=== PATIENT | female | born 1930 | race Caucasian/White ===

== ENCOUNTER 2017-11-20 13:40 | Inpatient (IN) | payer OTHER ==
[~2017-11-20] VITALS: Ht 162.6 cm; Wt 75.7 kg
[~2017-11-20 13:40] MED LIST: ACETAMINOPHEN500 M4 PO; AMLODIPINE BESYL5 M1 PO; BIOTIN1000 MC1 PO; CALCIUM 600 +1 EAC9 PO; GLUCOPHAGE XR500 M1 PO; GLUCOSAMINE CH1 EAC2 PO; LISINOPRIL20 M1 PO; MAGNESIUM250 M2 PO; MECLIZINE HCL12.5 M1 PO; METFORMIN HCL500 M4 PO; NAC600 M1 PO; NORVASC5 M1 PO; VITAMIN B-121000 MC3 PO
--- NOTE | 2017-11-20 15:32 | ED SYNCOPE COMPLAINT ---
History of Present Illness General Chief Complaint: Syncope and Near-Syncope Stated Complaint: SYNCOPE EPISODE WITH AT [employer] Source: patient, family, old records, EMS Exam Limitations: no limitations Vital Signs & Intake/Output Vital Signs & Intake/Output Vital Signs Date Time Temp Pulse Resp B/P B/P Pulse O2 O2 Flow FiO2 Mean Ox Delivery Rate 11/20 1706 97.6 62 20 164/74 98 Room Air 11/20 1629 97 Room Air 11/20 1431 63 18 167/74 95 Room Air 11/20 1352 97.7 79 18 139/68 97 Room Air Allergies Coded Allergies: NO KNOWN ALLERGIES (03/07/16) Reconcile Medications Acetaminophen 500 MG TABLET 1 TAB PO Q8P headache/pain . Acetylcysteine (NAC) 600 MG CAPSULE 1 CAP PO QHS LUNGS (Reported) Amlodipine (Norvasc) 2.5 MG TABLET 1 TAB PO DAILY BP (Reported) Biotin 1,000 MCG TAB.CHEW 1 TAB PO QPM SUPPLEMENT (Reported) Calcium Carbonate/Vitamin D3 (Calcium 600 + Vit D3 Caplet) 600 MG-800 TABLET 1 TAB PO EOD SUPPLEMENT (Reported) Cyanocobalamin (Vitamin B-12) 1,000 MCG TABLET 1 TAB PO QPM SUPPLEMENT ( Reported) Glucosamine Sulfate 2KCL (Glucosamine) (Unknown Strength) TABLET (Unknown Dose ) PO QPM SUPPLEMENT (Reported) Lisinopril 20 MG TABLET 1 TAB PO BID BP (Reported) Magnesium Oxide (Magnesium) 250 MG TABLET 1 TAB PO BID SUPPLEMENT (Reported) Triage Note: RECEIVED 87 YO MALE BIBA FROM [employer] [facility]. ACCORDING TO REPORT, PT HAD A SYNCOPE EPISODE WHILE GETTING HAIR DONE. PT REPORTS WEAKNESS PRIOR TO SYNCOPE. NO C/O DIZZINESS/LIGHTHEADEDNESS. PT'S BLOOD SUGAR BY PARAMEDICS WAS 157. PT REPORTS SHE DID NOT EAT THIS AM OR TAKE HER SCHEDULED MEDS THIS MORNING YET. PT PRESENTLY A+O X 3. PT WAS POSITIVE ORTHOSTATIC IN FIELD. SYSTOLIC B/P WENT FROM 105 TO 85. JASON ESTABLISHED IN FIELD. PT RECEIVED A TOTAL OF 150 ML N/S IV. Triage Nurses Notes Reviewed? yes Timing: single episode today Precipitating Factors: lightheadedness Loss of Consciousness: unsure HPI: 87-year-old female comes into the emergency room by ambulance after experiencing a syncopal episode while she was getting her hair done. Patient reports that she was feeling profoundly weak when suddenly she must have passed out. It was witnessed by the hairdresser. She denies any preceding chest pain shortness of breath palpitations. History of pacemaker and prior syncopal episodes. Comes in for further evaluation. (Bryon Moreau) Past History Travel History Traveled to [place] past 21 day No Medical History Any Pertinent Medical History? see below for history Neurological: NONE EENT: cataracts Cardiovascular: hypertension, LBBB Respiratory: obstructive sleep apnea, pulmonary fibrosis Gastrointestinal: NONE Hepatic: NONE Renal: NONE Musculoskeletal: osteoarthritis, osteoporosis Psychiatric: NONE Endocrine: diabetes Blood Disorders: NONE Cancer(s): NONE AUDIT ASSOCIATE/Reproductive: NONE History of MRSA: No History of VRE: No History of CDIFF: No Surgical History Surgical History: hip replacement, knee replacement Psychosocial History Who do you live with Spouse Services at Home None What is your primary language Puerto Rican Tobacco Use: Never used Family History Hx Contributory? No (Bryon Moreau) Review of Systems Review of Systems Constitutional: Reports: no symptoms. EENTM: Reports: no symptoms. Respiratory: Reports: no symptoms. Cardiovascular: Reports: see HPI. GI: Reports: no symptoms. Genitourinary: Reports: no symptoms. Musculoskeletal: Reports: no symptoms. Skin: Reports: no symptoms. Neurological/Psychological: Reports: no symptoms. All Other Systems: Reviewed and Negative (Bryon Moreau) Physical Exam Physical Exam General Appearance: well developed/nourished, no apparent distress, alert, awake Head: atraumatic, normal appearance Eyes: Bilateral: normal appearance, EOMI. Ears, Nose, Throat: normal ENT inspection, hearing grossly normal Neck: normal inspection Respiratory: normal breath sounds, no respiratory distress Cardiovascular: regular rate/rhythm Back: normal inspection Extremities: normal inspection Psychiatric: awake, alert, oriented x 3 Cranial Nerves: normal hearing, normal speech, PERRL Coordination/Gait: normal gait Motor/Sensory: no motor/sensory deficits Skin: intact, normal color Core Measures ACS in differential dx? Yes CVA/TIA Diagnosis: No Sepsis Present: No Sepsis Focused Exam Completed? No (Bryon Moreau) Progress Differential Diagnosis: AMI, aortic dissection, aortic valve, drug induced syncope, hyperventilation, orthostatic syncope, other valvular disease, pacemaker malfunction, pericardial tamponade, pulmonary embolus, seizure, sick sinus syndrome, subarachnoid hem., TIA/CVA, vasodepressor syncope, ventricular tach/fib Plan of Care: Orders Procedure Date/time Status Heart Healthy Diet 11/21 B Active Patient Data 11/20 170 Active ED Holding Orders 11/20 170 Active Admit to inpatient 11/20 1702 Active Vital Signs 11/20 170 Active Code Status 11/20 170 Active Telemetry/Field Administrator 11/20 1348 Active TROPONIN LEVEL 11/20 1348 Complete COMPREHENSIVE METABOLIC PANEL 11/20 1348 Complete CBC WITHOUT DIFFERENTIAL 11/20 1348 Complete EKG 11/20 1348 Active Laboratory Tests 11/20/17 1515: Anion Gap 10, Estimated GFR > 60, BUN/Creatinine Ratio 28.3 H, Glucose 149 H, Calcium 9.7, Total Bilirubin 0.7, AST 13 L, ALT 13, Alkaline Phosphatase 79, Troponin I < 0.01, Total Protein 7.5, Albumin 4.2, Globulin 3.3, Albumin/ Globulin Ratio 1.3, CBC w Diff NO MAN DIFF REQ, RBC 4.18 L, MCV 92.7, MCH 30.7, MCHC 33.2, RDW 14.1, MPV 7.8, Gran % 80.4 H, Lymphocytes % 11.9 L, Monocytes % 6.1, Eosinophils % 0.9, Basophils % 0.7, Absolute Granulocytes 7.8 H, Absolute Lymphocytes 1.2, Absolute Monocytes 0.6, Absolute Eosinophils 0.1, Absolute Basophils 0.1 Diagnostic Imaging: Viewed by Me: Radiology Read. Discussed w/RAD: Radiology Read. Radiology Impression: PATIENT: VIJAY CUEVAS PRESENT AGE: 87 PATIENT ACCOUNT NO: [id number] : [birth year] LOCATION: [facility] ORDERING PHYSICIAN: Bryon CLINE SERVICE DATE: 11/20/17 EXAM TYPE: RAD - XRY-PORTABLE CHEST XRAY EXAMINATION: XR PORTABLE CHEST CLINICAL INFORMATION: Syncope. COMPARISON: Chest x-ray 03/20/2017, 3:42 PM TECHNIQUE: Portable frontal view of the chest was obtained. 3:46 PM FINDINGS: Pacemaker leads in right atrium and right ventricle. There is emphysematous lucency of lung with coarse chronic increased lung markings, chronic interstitial lung disease. There is no focal consolidation. No pleural effusion pneumothorax. Compared to prior chest x -ray there is no change. IMPRESSION: Chronic diffuse interstitial lung disease. No acute abnormality of chest. DICTATED BY: Zacarias Rothman MD DATE/TIME DICTATED: 11/20/171625 WRAPPER STRIPPER:JULIAN DATE/TIME TRANSCRIBED:11/20/171625 CONFIDENTIAL, DO NOT COPY WITHOUT APPROPRIATE AUTHORIZATION. <Electronically signed in Other Vendor System> SIGNED BY: Zacarias Rothman MD 11/20/17 1632 Initial ED EKG: rate (61), pacemaker rhythm (Bryon Moreau) Departure Departure Disposition: STILL A PATIENT Condition: Stable Clinical Impression Primary Impression: Syncope Referrals: Ayaka JACKSON,Lucien Kelly (PCP/Family) Departure Forms: Customer Survey General Discharge Information Admission Note Documentation of Exam: Documentation of any treatments & extenuating circumstances including Concerns Regarding Discharge (functional status, medication knowledge or non-compliance, living conditions, etc.) that warrant an admission rather than observation: Cardiac telemetry. Serial troponins. Cardiac consultation. Echocardiogram.REPEAT LABS (Bryon Moreau) Admission Note Spoke With: Michael JACKSON,Sarita Kelly PA/DEPUTY PROBATION OFFICER Co-Sign Statement Statement: ED Attending supervision documentation- [X] I saw and evaluated the patient. I have also reviewed all the pertinent lab results and diagnostic results. I agree with the findings and the plan of care as documented in the PA's/DEPUTY PROBATION OFFICER's documentation. [] I have reviewed the ED Record and agree with the PA's/DEPUTY PROBATION OFFICER's documentation. [] Additions or exceptions (if any) to the PAs/DEPUTY PROBATION OFFICER's note and plan are summarized below: [] I saw and personally evaluated the patient and I agree with the PAs evaluation. She was at the [facility] and had a syncopal episode. No chest pain or shortness of breath. (Aubrey Ignacio DO)
[2017-11-20 15:34] LABS: ABSOLUTE BASOPHIL COUNT 0.1 /CUMM (0.0-0.2); ABSOLUTE EOSINOPHIL COUNT 0.1 /CUMM (0.0-0.7); ABSOLUTE GRANULOCYTE CT 7.8 /CUMM (1.4-6.5); ABSOLUTE LYMPH COUNT 1.2 /CUMM (1.2-3.4); ABSOLUTE MONOCYTE COUNT 0.6 /CUMM (0.10-0.60); BASOPHIL % 0.7 % (0.0-2.0); EOSINOPHIL % 0.9 % (0-5); GRANULOCYTE % 80.4 % (42.2-75.2); HEMATOCRIT 38.8 % (37-47); MEAN CORPUSCULAR HGB 30.7 PG (27.0-31.0); MEAN CORPUSCULAR HGB CONC 33.2 G/DL (33.0-37.0); MEAN CORPUSCULAR VOLUME 92.7 FL (81.0-99.0); MEAN PLATELET VOLUME 7.8 FL (7.4-10.4); PLATELET COUNT 335 /CUMM (130-400); RBC DISTRIBUTION WIDTH 14.1 % (11.5-14.5); RED BLOOD CELL CT 4.18 /CUMM (4.20-5.40); WHITE BLOOD CELL COUNT 9.8 /CUMM (4.8-10.8)
--- NOTE | 2017-11-20 16:32 | RADIOLOGY REPORT ---
EXAMINATION: XR PORTABLE CHEST CLINICAL INFORMATION: Syncope. COMPARISON: Chest x-ray 03/20/2017, 3:42 PM TECHNIQUE: Portable frontal view of the chest was obtained. 3:46 PM FINDINGS: Pacemaker leads in right atrium and right ventricle. There is emphysematous lucency of lung with coarse chronic increased lung markings, chronic interstitial lung disease. There is no focal consolidation. No pleural effusion pneumothorax. Compared to prior chest x-ray there is no change. IMPRESSION: Chronic diffuse interstitial lung disease. No acute abnormality of chest.
--- NOTE | 2017-11-20 17:52 | Admission Certification ---
Admission Certification Certification Statement - As attending physician, I certify that at the time of - admission, based on clinical presentation, severity of - symptoms, need for further diagnostic testing and - therapeutic interventions, and risk of adverse outcomes - without in-hospital treatment, in my clinical assessment, - this patient requires an acute hospital stay for a minimum - of two nights or longer. I have also considered psychsocial - factors such as support system, advanced age, financial - issues, cognitive issues, and failed out-patient treatments, - past re-admission history, safety of patient, and lack of - compliance as applicable. Specific rationale supporting this admission is: Syncope in pt with htn, dm and ppm
--- NOTE | 2017-11-20 18:47 | History & Physical ---
[place] 11/20/17 0450: General Information and HPI MD Statement: I have seen and personally examined VIJAY CUEVAS and documented this H&P. The patient is a 87 year old F who presented with a patient stated chief complaint of syncope episode []. Source of Information: patient, family, old records Exam Limitations: no limitations History of Present Illness: 87 YO F with PMH of hypertension, obstructive sleep apnea, LBBB, symptomatic bradycardia status post pacemaker, pulmonary fibrosis, osteoarthritis, osteoporosis, type take, hip and knee replacement was brought to ED with chief complaint of episode of syncope this morning. She reported that he was in her usual state of health since this morning. She woke up in the morning and was getting her hairdressing. During her hairdressing she was feeling exhausted and all of a sudden she fainted. The hairdresser was the who noticed that she remained unconscious for a few minutes and she called her son. Her son told that he called her mother and he was awake at that time. Patient was sitting in the chair during this episode. Patient denied any chest pain, palpitation, short of breath, nausea, vomiting, sweating, blurry vision, numbness, tingling, weakness of any part of the constitution party, fecal or urine incontinence, tongue bite, confusion after the syncope episode, abdominal pain and dysuria. Patient reported that after the episode she was not confused and she was alert and oriented. She is following Dr. Bolivar and in the past patient has permanent pacemaker that was placed by Dr. De La Vega. She is due to see Dr. Bolivar next week. Last echocardiogram was done in 2017 that showed ejection fraction 55% with mild left ventricular hypertrophy. EEG was done in 2017 that was normal. Patient had syncopal episode in 2017 when she fell down and had laceration of scalp. Patient had symptomatic bradycardia and pacemaker placement was done at that admission. ED course; Vitals: Temperature 97.7, pulse 79, respiratory rate 18, blood pressure 139/68, oxygen saturation 97% on room air Labs: WBC count 9.8, hemoglobin 12.9, hematocrit 38.8, platelet count 335, sodium 131, potassium 4.8, BUN 17, creatinine 0.6, BUNs/creatinine ratio 28.3, glucose 149, calcium 9.7, AST 13, ALT 13, troponin less than 0.01 Allergies/Medications Allergies: Coded Allergies: NO KNOWN ALLERGIES (03/07/16) Home Med list Acetaminophen 500 MG TABLET 1 TAB PO Q8P headache/pain . Acetylcysteine (NAC) 600 MG CAPSULE 1 CAP PO QHS LUNGS (Reported) Amlodipine Besylate (Norvasc) 5 MG TABLET 1 TAB PO DAILY HTN (Reported) Biotin 1,000 MCG TAB.CHEW 1 TAB PO QPM SUPPLEMENT (Reported) Calcium Carbonate/Vitamin D3 (Calcium 600 + Vit D3 Caplet) 600 MG-800 TABLET 1 TAB PO EOD SUPPLEMENT (Reported) Cyanocobalamin (Vitamin B-12) 1,000 MCG TABLET 1 TAB PO QPM SUPPLEMENT ( Reported) Escitalopram Oxalate (Lexapro) 5 MG TABLET 1 TAB PO DAILY Depression ( Reported) Gluc HCl/Csa/Kristy Hy/Hyalur AC (Glucosamine Chondroitin Cap) 375 MG-300 MG-50 MG -2 MG CAPSULE 1 CAP PO DAILY JOINTS (Reported) Lisinopril 20 MG TABLET 1 TAB PO BID BP (Reported) Magnesium Oxide (Magnesium) 250 MG TABLET 1 TAB PO BID SUPPLEMENT (Reported) Metformin HCl (Metformin HCl ER) 500 MG TAB.ER.24 1 TAB PO DAILY DM (Reported ) Past History Travel History Traveled to [place] past 21 day No Medical History Neurological: NONE EENT: cataracts Cardiovascular: hypertension, LBBB Respiratory: obstructive sleep apnea, pulmonary fibrosis Gastrointestinal: NONE Hepatic: NONE Renal: NONE Musculoskeletal: osteoarthritis, osteoporosis Psychiatric: NONE Endocrine: diabetes Blood Disorders: NONE Cancer(s): NONE ENVIRONMENTAL HEALTH SPECIALIST/Reproductive: NONE History of MRSA: No History of VRE: No History of CDIFF: No Surgical History Surgical History: hip replacement, knee replacement Past Family/Social History Psychosocial History Services at Home: None Review of Systems Review of Systems Constitutional: Denies: chills, fever. EENTM: Denies: blurred vision, double vision. Cardiovascular: Reports: syncope. Denies: chest pain, palpitations. Respiratory: Denies: cough, short of breath, sputum production. GI: Denies: abdominal pain, bloating, constipation, diarrhea, nausea, vomiting. Genitourinary: Reports: no symptoms. Neurological/Psychological: Reports: see HPI. Exam & Diagnostic Data Last 24 Hrs of Vital Signs/I&O Vital Signs Date Time Temp Pulse Resp B/P B/P Pulse O2 O2 Flow FiO2 Mean Ox Delivery Rate 11/20 1706 97.6 62 20 164/74 98 Room Air 11/20 1629 97 Room Air 11/20 1431 63 18 167/74 95 Room Air 11/20 1352 97.7 79 18 139/68 97 Room Air Intake & Output 11/20 1600 11/20 0800 11/20 0000 Intake Total Output Total Balance Patient 175 lb Weight Weight Estimated Measurement Method Physical Exam General Appearance Alert, Oriented X3, Cooperative Skin No Rashes Skin Temp/Moisture Exam: Warm/Dry Sepsis Skin Exam (color): Normal for Ethnicity HEENT Atraumatic, PERRLA, EOMI Neck Supple Cardiovascular Normal S1, Normal S2 Lungs Clear to Auscultation Abdomen Soft, No Tenderness Neurological Normal Speech, Strength at 5/5 X4 Ext, Normal Tone Extremities b/l pedal edema grade 1 Assessment/Plan Assessment: 87 YO F with PMH of hypertension, obstructive sleep apnea, LBBB, symptomatic bradycardia status post pacemaker, pulmonary fibrosis, osteoarthritis, osteoporosis, type take, hip and knee replacement was brought to ED with chief complaint of episode of syncope this morning. We will keep the patient on telemetry floor to treat for following problems; Syncope episode: -Patient has history of symptomatic bradycardia status post pacemaker placement so we will keep the patient on telemetry floor to rule out any arrhythmias or heart block. -Pacemaker interrogation in a.m. -Orthostatic vitals -Cardiac consult in a.m. -Echocardiogram History of hypertension: -Continue amlodipine and lisinopril History of pulmonary fibrosis: -Continue acetylcysteine History of diabetes: -Accu-Cheks -Insulin NovoLog according to sliding scale History of depression/anxiety: -Continue Lexapro DVT prophylaxis: Mechanical and subcutaneous heparin CODE STATUS: DNR/DNI As Ranked By This Provider Problem List: 1. Syncope Core Measures/Misc (04/22) Acute Coronary Syndrome ACS Diagnosis: No Congestive Heart Failure Congestive Heart Failure Diagnosis No Cerebrovascular Accident CVA/TIA Diagnosis: No VTE (View Protocol) VTE Risk Factors Age>40 No Mechanical VTE Prophylaxis d/t N/A MechProphylax Ordered No VTE Pharm Prophylaxis d/t NA PharmProphylax ordered Sepsis (View protocol) Sepsis Present: No Barron Almanza MD 11/20/17 2223: Resident Review Statement Resident Statement: examined this patient, discussed with unpaid intern, agreed with unpaid intern, discussed with family, reviewed EMR data (avail), discussed with nursing , discussed with case mgmt, reviewed images Other Findings: History of Present Illness 87 year old woman with past medical history of bradycardia s/p PPM, LBBB, LEONIDAS, pulmonary fibrosis, osteoarthritis, osteoporosis, and non-insulin dependent diabetes mellitus brought in by ambulance after "passing out". Patient reportedly woke up in her normal stateof health when she drank a cup of coffee and began to get ready for the day. She got busy, skipped breakfast, and her medications. Her hairdresser arrived at her home around 11:00 and washed and dried the patients hair. Apparently around noon the patient suddenly "passed out " for approximately two minutes. She did not fall out of the hair or suffer any injuries. She did not have any witness shaking movement, tongue biting, or bowel / bladder incontinence. She denied any preceeding aura and when she awoke she hadn'y realized that she "passed out". She denied any post-event confusion. EMS was contacted and patient was brought to the [facility] for further evaluation. Presently patient states that she feels well and has no complaints. Review of Systems Otherwise she denies any headache, fever, chills, lightheadedness, dizziness, blurred/double vision, slurred / mumbled speech, numbness, tingling, weakness, chest pain, palpitations, heartburn, shortness of breath, cough, nausea, vomiting, diarrhea. Objective Vitals- Temp 97.6, HR 62, RR 20, BP 164/74, O2 98% on room air Physical Exam -GEN: well developed, well nourished pleasant elderly woman in no acute distress -HEENT: NCAT, PERRLA, EOMI, anicteric sclera, MMM -NECK: Supple, no JVD, trachea midline -CARD: Normal S1/S2 w/o m/g/r; RRR; pacemaker in place -PULM: CTA bilaterally -ABD: Soft, NT, ND, BS+ -NEURO: Awake, alert, orientedx3, speech/sensation/coordination intact, face symmetric, CN II-XII grossly intact -EXT: normal pulses, trace pedal edema Labs / Imaging / Studies -CBC: WBC 9.8, HGB 12.9, HCT 38.8. PLT 335 -BMP: Na 134, K 3.8, CL 96, CO2 28, BUN 17, Cr 0.6, AG 10, Glu 149 -LFT: within normal limits -Misc: Troponin I < 0.01 -CXR: chronic interstitial lung disease -EKG: Atrial paced -Echo 03/15/17: LVEF 55% without regional wall motion abnormalities Assessment 87 year old woman with multiple medical problems significant for bradycardia s/p PPM and pulmonary fibrosis seen for evaluation after "passing out". Given patients history of profound bradycardia requiring placement of a permanent pacemaker it is possible patient has some arrhythmia or event that precipitated her syncopal episode for which the device should be interogated. Telemetry and 12-lead EKG demonstrated only an atrial paced rhythm. It is also possible patient suffered a vasovagal episode secondary to flexion of the neck with stimulation of the carotid sinus and water splashed onto her face during hair washing. Patient admits to missing breakfast and her medications which may have contributed to this. Clinically patient does not appear to have a clear cut neurologic or cardivascular event. Problem List -Syncope -History of bradycardia s/p PPM -Obstructive sleep apnea -Pulmonary fibrosis -Osteoarthritis -Osteoporosis -Non-insulin depedent diabetes mellitus -Hypertension Plan -Admit to telemetry -Telemetry monitoring -Check orthostatic blood pressures -Interogate pacemaker -Continue home meds: N-acetylcysteine, amlodipine, lexapro, lisinopril, mag-ox -Cardiology consult with Dr. Bolivar in AM for syncope -Pain control with acetaminophen -Heart Healthy Diet -DVT PPx with subcutaneous heparin -DNR/DNI Michael JACKSON,Sarita 11/21/17 0736: Past Family/Social History Psychosocial History Other Social History: Family history non contributory to current illness. Attending MD Review Statement Attending Statement Attending MD Statement: examined this patient, discuss w/resident/PA/SUPERVISOR PLATING AND POINT ASSEMBLY, agreed w/resident/PA/SUPERVISOR PLATING AND POINT ASSEMBLY, reviewed EMR data (avail), reviewed images Attending Assessment/Plan: See medical brief addendum noted dated 11/20/17
[2017-11-20] MEDS ORDERED: METFORMIN HCL500 M2 PO (20:11)
[2017-11-20] MEDS ORDERED: LEXAPRO5 M1 PO (20:12)
--- NOTE | 2017-11-20 20:37 | PN- Att Addend ---
Attending Addendum Attending Brief Note 87 year old female with PMH of DM on Metformin, HTN, "pulmonray fibrosis" per pt , and PPM in 03/22 is here with syncopal event. 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 Pt was orthostatic per EMS notes and got fluids enroute. Likley vasovagal given neck position (hairspring truing inspector) during event and pt admits to skipping breakfast and morning meds prior to event. However given comorbidities, will admit to Tele. Needs PPM interrogated and formal cardiology consult. Pt was not hypoglycemic per EMS notes, will hold Metformin and check FS. Pt is very keen on staying only one night. Will need to ensure no bradyarythmias on tele and Cardiology f/u prior to dc. DVT prophyalxis and f/u.
[2017-11-21 06:34] LABS: ABSOLUTE BASOPHIL COUNT 0.1 /CUMM (0.0-0.2); ABSOLUTE EOSINOPHIL COUNT 0.2 /CUMM (0.0-0.7); ABSOLUTE GRANULOCYTE CT 4.2 /CUMM (1.4-6.5); ABSOLUTE LYMPH COUNT 2.1 /CUMM (1.2-3.4); ABSOLUTE MONOCYTE COUNT 0.6 /CUMM (0.10-0.60); BASOPHIL % 0.7 % (0.0-2.0); EOSINOPHIL % 3.3 % (0-5); GRANULOCYTE % 57.7 % (42.2-75.2); HEMATOCRIT 37.2 % (37-47); MEAN CORPUSCULAR HGB 30.4 PG (27.0-31.0); MEAN CORPUSCULAR HGB CONC 32.8 G/DL (33.0-37.0); MEAN CORPUSCULAR VOLUME 92.6 FL (81.0-99.0); MEAN PLATELET VOLUME 7.9 FL (7.4-10.4); PLATELET COUNT 298 /CUMM (130-400); RED BLOOD CELL CT 4.02 /CUMM (4.20-5.40); WHITE BLOOD CELL COUNT 7.2 /CUMM (4.8-10.8)
[2017-11-21 07:00] VITALS: BP 161/72
--- NOTE | 2017-11-21 07:08 | PN- Housestaff ---
[facility]: Subjective Follow-up For: Syncope Tele-Events Since Last Visit: Patient's heart rate remaining 60s and 70s Subjective: No overnight events. Patient remained afebrile overnight. Is seen and examined this morning. Patient denied any chest pain, short of breath, nausea, vomiting, chills, palpitation and dysuria. Review of Systems Constitutional: Denies: chills, fever. EENTM: Reports: no symptoms. Cardiovascular: Denies: chest pain, palpitations. Respiratory: Denies: cough, short of breath, sputum production. Gastrointestinal: Denies: abdominal pain, diarrhea, nausea. Genitourinary: Reports: no symptoms. Neurological/Psychological: Reports: no symptoms. Objective Last 24 Hrs of Vital Signs/I&O Vital Signs Date Time Temp Pulse Resp B/P B/P Pulse O2 O2 Flow FiO2 Mean Ox Delivery Rate 11/21 1001 70 146/66 11/21 1001 70 146/66 11/21 0603 98.1 66 18 161/72 93 Room Air 11/21 0033 98.1 66 20 159/72 93 Room Air 11/20 2300 98.7 63 18 185/76 94 Room Air 11/20 2151 97 Room Air 11/20 2149 98.2 62 20 148/64 11/20 2149 98.2 62 20 148/64 11/20 1947 98.2 62 20 148/64 95 Room Air 11/20 1706 97.6 62 20 164/74 98 Room Air 11/20 1629 97 Room Air 11/20 1431 63 18 167/74 95 Room Air 11/20 1352 97.7 79 18 139/68 97 Room Air Intake & Output 11/21 1600 11/21 0800 11/21 0000 Intake Total 120 Output Total Balance 120 Intake, Oral 120 Patient 175 lb Weight Weight Reported by Patient Measurement Method Physical Exam General Appearance: Alert, Oriented X3, Cooperative Skin: No Rashes Skin Temp/Moisture Exam: Warm/Dry Sepsis Skin Exam (color): Normal for Ethnicity HEENT: Atraumatic, PERRLA, EOMI Neck: Supple Cardiovascular: Normal S1, Normal S2 Lungs: Clear to Auscultation Abdomen: Soft, No Tenderness Neurological: Normal Speech, Strength at 5/5 X4 Ext, Normal Tone Extremities: b/l pedal edema Assessment/Plan Assessment: 87 YO F with PMH of hypertension, obstructive sleep apnea, LBBB, symptomatic bradycardia status post pacemaker, pulmonary fibrosis, osteoarthritis, osteoporosis, type take, hip and knee replacement was brought to ED with chief complaint of episode of syncope this morning. We are following the patient on telemetry floor to treat for following problems: Syncope episode: -Patient has history of symptomatic bradycardia status post pacemaker placement so we will keep the patient on telemetry floor to rule out any arrhythmias or heart block. -Pacemaker interrogation. -Orthostatic is normal. -Cardiac consult. -Echocardiogram History of hypertension: -Continue amlodipine and lisinopril History of pulmonary fibrosis: -Continue acetylcysteine History of diabetes: -Accu-Cheks -Insulin NovoLog according to sliding scale History of depression/anxiety: -Continue Lexapro DVT prophylaxis: Mechanical and subcutaneous heparin CODE STATUS: DNR/DNI Problem List: 1. Syncope Pain Ratin Pain Location: none Pain Goal: Remain pain free Pain Plan: pain pathway Tomorrow's Labs & Rationales: Cuhn Moreno MD 11/21/17 1050: Attending MD Review Statement Attending Statement Attending MD Statement: examined this patient, discuss w/resident/PA/FREELANCE COPYWRITER, agreed w/resident/PA/FREELANCE COPYWRITER, reviewed EMR data (avail) Attending Assessment/Plan: 87F PMH bradycardia s/p PPM, LBBB, LEONIDAS, pulmonary fibrosis, osteoarthritis, osteoporosis, and non-insulin dependent diabetes mellitus admitted with syncopal event. Yesterday was in her usual state of health, went to the [facility], and syncopized for 2 minutes, no symptoms prior, no evidence of seizure after, and has been asymptomatic since. She had skipped breakfast that morning and had her hair washed in the salon. Today she feels well and has no complaints. She denies chest pain, lightheadedness, vertigo, palpitations, or weakness. EKG NSR. Labs reviewed. Exam benign. 1. Syncope 2. History of bradycardia s/p PPM Plan - Continue on telemetry - Pacemaker interrogation - Cardiology consult - Check orthostatics again - PT eval - Continue home medications - DVT PPx - Anticipated discharge later today or tomorrow pending cardiology recommendations -
[2017-11-21 10:51] VITALS: BP 141/77
--- NOTE | 2017-11-21 15:01 | Discharge Summary ---
Visit Information Visit Dates Admission Date: 11/20/17 Discharge Date: 11/23/17 Hospital Course Course Attending Physician: Chun Evangelista MD Primary Care Physician: Lucien Marley MD Hospital Course: 87 YO F with PMH of hypertension, obstructive sleep apnea, LBBB, symptomatic bradycardia status post pacemaker, pulmonary fibrosis, osteoarthritis, osteoporosis, type take, hip and knee replacement was brought to ED with chief complaint of episode of syncope this morning. ED course: Vitals: Temperature 97.7, pulse 79, respiratory rate 18, blood pressure 139/68, oxygen saturation 97% on room air Labs: WBC count 9.8, hemoglobin 12.9, hematocrit 38.8, platelet count 335, sodium 131, potassium 4.8, BUN 17, creatinine 0.6, BUNs/creatinine ratio 28.3, glucose 149, calcium 9.7, AST 13, ALT 13, troponin less than 0.01 Syncope episode: Patient was admitted with chief complaint of syncopal episode, possibly due to vasovagal. On admission her orthostatic vitals were checked that remained negative. Considering patient's history of symptomatic bradycardia status post pacemaker placement, Cardiology consult was obtained for pacemaker interrogation. Her pacemaker was functioning properly during interrogation without any need of reprogramming. Her monitoring coordinator didn't show any arrhythmias or blocks that can cause syncope. Her repeat orthostatic vitals also remained negative. Patient instructed to follow cardiology as outpatient for further recommendations and close follow-up. History of hypertension: Her orthostatic vitals remained negative so continued her home antihypertensive medications. History of pulmonary fibrosis: Continued acetylcysteine. History of diabetes: Patient's metformin was discontinued during hospital stay. No Accu-Cheks were checked during hospital stay and she will not on any insulin NovoLog. We continued her metformin over the discharge. History of depression/anxiety: Continued Lexapro DVT prophylaxis: Mechanical and subcutaneous heparin CODE STATUS: DNR/DNI Allergies: Coded Allergies: NO KNOWN ALLERGIES (03/07/16) Pertinent Lab Results: Chest x-ray on 11/20/2017: IMPRESSION: Chronic diffuse interstitial lung disease. No acute abnormality of chest. Disposition Summary Disposition Principal Diagnosis: Vasovagal syncope Additional Diagnosis: History of hypertension History pulmonary fibrosis History of diabetes History of depression/anxiety Discharge Disposition: home or self care Discharge Instructions General Discharge Information Code Status: Do Not Resucitate/Intubat Patient's Diet: Heart healthy Patient's Activity: Self limited Follow-Up Instructions/Appts: Follow-up with your primary care physician in one week. Follow up with her plugger in 1 week. Medications at Discharge Discharge Medications: Continue taking these medications: Acetylcysteine (NAC) 600 MG CAPSULE 1 Capsule ORAL TAKE AT BEDTIME Comments: Last Taken: 11/22/17 Time: 9 PM Magnesium Oxide (Magnesium) 250 MG TABLET 1 Tablet ORAL TWICE DAILY Comments: Last Taken: 11/23/17 Time: 9 AM Biotin (Biotin) 1,000 MCG TAB.CHEW 1 Tablet ORAL Every night Comments: NOT GIVEN IN HOSPITAL Gluc HCl/Csa/Kristy Hy/Hyalur AC (Glucosamine Chondroitin Cap) 375 MG-300 MG-50 MG -2 MG CAPSULE 1 Capsule ORAL DAILY Comments: NOT GIVEN IN HOSPITAL Calcium Carbonate/Vitamin D3 (Calcium 600 + Vit D3 Caplet) 600 MG-800 TABLET 1 Tablet ORAL Every other day Comments: NOT GIVEN Cyanocobalamin (Vitamin B-12) 1,000 MCG TABLET 1 Tablet ORAL Every night Comments: NOT GIVEN IN HOSPITAL Lisinopril (Lisinopril) 20 MG TABLET 1 Tablet ORAL TWICE DAILY Comments: Last Taken: 11/23/17 Time: 8 AM Amlodipine Besylate (Norvasc) 5 MG TABLET 1 Tablet ORAL DAILY Comments: Last Taken: 11/23/17 Time: 9 AM Acetaminophen (Acetaminophen) 500 MG TABLET 1 Tablet ORAL EVERY 8 HOURS NEEDED Qty = 10 Instructions: . Comments: NOT GIVEN Metformin HCl (Metformin HCl ER) 500 MG TAB.ER.24 1 Tablet ORAL DAILY Instructions: NOT GIVEN Escitalopram Oxalate (Lexapro) 5 MG TABLET 1 Tablet ORAL DAILY Comments: Last Taken: 11/23/17 Time: 8 AM Copies To: Ayaka JACKSON,Lucien Kelly; Katt JACKSON,Noman Elliott
--- NOTE | 2017-11-21 15:07 | Patient Discharge Instructions ---
Discharge Instructions General Discharge Information You were seen/treated for: Syncope Watch for these problems: " Lightheadedness, chest pain, shortness of breath, loss of consciousness, nausea, vomiting, abdominal pain, numbness, weakness, slurred speech, severe headache and sudden blurry vision. If you experience any of these symptoms please come to ED or call to her primary care physician. Special Instructions: Follow-up with your primary care physician in one week. Follow up with her service station manager in 1 week. Diet Recommended Diet: Heart Healthy Activity Activity Self Limited: Yes Acute Coronary Syndrome Inclusion Criteria At DC or during hospital stay patient has or had the following: ACS DIAGNOSIS No Discharge Core Measures Meds if any: Prescribed or Continued at Discharge Meds if any: NOT Prescribed or Continued at Discharge Congestive Heart Failure Inclusion Criteria At DC or during hospital stay patient has or had the following: CHF DIAGNOSIS No Discharge Core Measures Meds if any: Prescribed or Continued at Discharge Meds if any: NOT Prescribed or Continued at Discharge Cerebrovascular accident Inclusion Criteria At DC or during hospital stay patient has or had the following: CVA/TIA Diagnosis No Discharge Core Measures Meds if any: Prescribed or Continued at Discharge Meds if any: NOT Prescribed or Continued at Discharge Venous thromboembolism Inclusion Criteria VTE Diagnosis No VTE Type NONE VTE Confirmed by (Test) NONE Discharge Core Measures - Per Current guidelines, there needs to be overlap - treatment for the first 5 days of Warfarin therapy. - If discharged on Warfarin prior to 5 days of - overlap therapy, the patient will need to be - assessed for post discharge needs including - *Post discharge parental anticoagulation - *Warfarin and/or parental anticoagulation education - *Follow up date to check INR post discharge At least 5 days overlap therapy as Inpatient No Meds if any: Prescribed or Continued at Discharge Note: Overlap Therapy is Warfarin and Anticoagulant Meds if any: NOT Prescribed or Continued at Discharge
[2017-11-21 22:39] VITALS: BP 110/60
[2017-11-21 22:45] VITALS: BP 110/60
[2017-11-22 06:51] VITALS: BP 132/66
--- NOTE | 2017-11-22 07:33 | PN- Housestaff ---
[facility]: Subjective Follow-up For: Syncope Tele-Events Since Last Visit: Single pacing heart rate between 6166 Subjective: No overnight events. Patient remained afebrile gap is seen and examined this morning. She denied any chest pain, short of breath, nausea, vomiting, lightheadedness and dysuria. Patient walked around yesterday and she was feeling fine. Review of Systems Constitutional: Denies: chills, fever. EENTM: Reports: no symptoms. Cardiovascular: Denies: chest pain, palpitations. Respiratory: Denies: cough, short of breath, sputum production. Gastrointestinal: Denies: abdominal pain, constipation, diarrhea, nausea. Genitourinary: Reports: no symptoms. Neurological/Psychological: Reports: no symptoms. Objective Last 24 Hrs of Vital Signs/I&O Vital Signs Date Time Temp Pulse Resp B/P B/P Pulse O2 O2 Flow FiO2 Mean Ox Delivery Rate 11/22 0651 97.4 83 18 132/66 94 Room Air 11/21 2249 140/70 11/21 2245 98.4 73 18 110/60 95 Room Air 11/21 1806 98.6 68 22 169/79 99 Room Air 11/21 1748 99 Room Air 11/21 1051 98.8 62 18 141/77 95 Room Air 11/21 1044 98.8 62 18 141/77 95 11/21 1001 70 146/66 11/21 1001 70 146/66 11/21 0830 Room Air Intake & Output 11/22 1600 11/22 0800 11/22 0000 Intake Total 120 250 Output Total Balance 120 250 Intake, Oral 120 250 Patient 168 lb Weight Physical Exam General Appearance: Alert, Oriented X3, Cooperative Skin Temp/Moisture Exam: Warm/Dry Sepsis Skin Exam (color): Normal for Ethnicity HEENT: Atraumatic, PERRLA, EOMI Neck: Supple Cardiovascular: Normal S1, Normal S2 Lungs: Clear to Auscultation Abdomen: Soft, No Tenderness Neurological: Normal Speech, Strength at 5/5 X4 Ext, Normal Tone Extremities: b/l reticular veins around ankles Assessment/Plan Assessment: 87 YO F with PMH of hypertension, obstructive sleep apnea, LBBB, symptomatic bradycardia status post pacemaker, pulmonary fibrosis, osteoarthritis, osteoporosis, type take, hip and knee replacement was brought to ED with chief complaint of episode of syncope this morning. We are following the patient on telemetry floor to treat for following problems: Syncope episode: -Patient has history of symptomatic bradycardia status post pacemaker placement so we will keep the patient on telemetry floor to rule out any arrhythmias or heart block. -Pacemaker interrogation. -Orthostatic is normal. -Cardiac consult. History of hypertension: -Continue amlodipine and lisinopril History of pulmonary fibrosis: -Continue acetylcysteine History of diabetes: -Accu-Cheks -Insulin NovoLog according to sliding scale History of depression/anxiety: -Continue Lexapro DVT prophylaxis: Mechanical and subcutaneous heparin CODE STATUS: DNR/DNI Problem List: 1. Syncope Pain Ratin Pain Location: none Pain Goal: Remain pain free Pain Plan: pain pathway Tomorrow's Labs & Rationales: none Chun Evangelista MD 11/22/17 0937: Attending MD Review Statement Attending Statement Attending MD Statement: examined this patient, discuss w/resident/PA/ANIMAL GENETICIST, agreed w/resident/PA/ANIMAL GENETICIST, reviewed EMR data (avail) Attending Assessment/Plan: 87F PMH bradycardia s/p PPM, LBBB, LEONIDAS, pulmonary fibrosis, osteoarthritis, osteoporosis, and non-insulin dependent diabetes mellitus admitted with syncopal event. Yesterday was in her usual state of health, [facility], and syncopized for 2 minutes, no symptoms prior, no evidence of seizure after, and has been asymptomatic since. She had skipped breakfast that morning and had her hair washed in the salon. Today she feels well and has no complaints. She denies chest pain, lightheadedness, vertigo, palpitations, or weakness. EKG NSR. Labs reviewed. Exam benign. 1. Syncope 2. History of bradycardia s/p PPM Plan - Continue on telemetry - Pacemaker interrogation - Cardiology consult - Check orthostatics again - PT eval - Continue home medications - DVT PPx - Anticipated discharge later today pending cardiology recommendations
[2017-11-22 15:33] VITALS: BP 138/68
--- NOTE | 2017-11-22 17:16 | Cons- Cardiology ---
General Information and HPI Consulting Request Date of Consult: 11/22/17 Requested By: Chun Evangelista MD Reason for Consult: Syncope. Source of Information: patient, old records Exam Limitations: poor historian History of Present Illness: Mrs. Su Burnett is an 87-year-old female with a history of hypertension, dyslipidemia, diabetes mellitus, interstitial lung disease, "chronic obstructive pulmonary disease", obstructive sleep apnea on CPAP, left ventricular hypertrophy with stage I diastolic dysfunction, chronic left bundle- branch block, and syncope which occurred prior to her last hospitalization here (-03/21/2017) and ultimately resulted in the placement of dual-chamber pacemaker who presented to the ED on 11/20/2017 following a syncopal episode at home with documented orthostasis. She was at home and having her hair done when she recalls telling her hairdresser that she didn't feel right and was weak and the next thing she knew the hairdresser told her that she had "passed out" for a minute or so. There was no observed seizure activity, oral trauma, or fecal/urinary incontinence. When she "came to" she was aware of her surroundings and was without other complaints. She has no syncopal or near syncopal episodes since her pacemaker implantation, until this episode. She states that she has been eating taking adequately by mouth ("balanced diet") , has had no medication or dosage changes, and is been compliant with her medications. She denies any recent chest discomfort, palpitations, shortness of breath, or change in her occasional bilateral (left greater than right) lower extremity edema. Her last echocardiogram was performed on 03/15/2017 and revealed a normal-sized LV with normal systolic function, mild LVH, mild posterior leaflet MVP with moderate MR, mild TR, trace AR and mild MT. Allergies/Medications Allergies: Coded Allergies: NO KNOWN ALLERGIES (03/07/16) Home Med List: Acetaminophen 500 MG TABLET 1 TAB PO Q8P headache/pain . Acetylcysteine (NAC) 600 MG CAPSULE 1 CAP PO QHS LUNGS (Reported) Amlodipine Besylate (Norvasc) 5 MG TABLET 1 TAB PO DAILY HTN (Reported) Biotin 1,000 MCG TAB.CHEW 1 TAB PO QPM SUPPLEMENT (Reported) Calcium Carbonate/Vitamin D3 (Calcium 600 + Vit D3 Caplet) 600 MG-800 TABLET 1 TAB PO EOD SUPPLEMENT (Reported) Cyanocobalamin (Vitamin B-12) 1,000 MCG TABLET 1 TAB PO QPM SUPPLEMENT ( Reported) Escitalopram Oxalate (Lexapro) 5 MG TABLET 1 TAB PO DAILY Depression ( Reported) Gluc HCl/Csa/Kristy Hy/Hyalur AC (Glucosamine Chondroitin Cap) 375 MG-300 MG-50 MG -2 MG CAPSULE 1 CAP PO DAILY JOINTS (Reported) Lisinopril 20 MG TABLET 1 TAB PO BID BP (Reported) Magnesium Oxide (Magnesium) 250 MG TABLET 1 TAB PO BID SUPPLEMENT (Reported) Metformin HCl (Metformin HCl ER) 500 MG TAB.ER.24 1 TAB PO DAILY DM (Reported ) Review of Systems Review of Systems: A 14 point system review was obtained and was noncontributory, other than as above. 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 Home Services at Home: Home Health Aide Smoking Status: Never Smoked Other Social History: Family history non contributory to current illness. Exam & Diagnostic Data Vital Signs and I&O Vital Signs Date Time Temp Pulse Resp B/P B/P Pulse O2 O2 Flow FiO2 Mean Ox Delivery Rate 11/22 1533 98.3 66 16 138/68 93 Room Air 11/22 0816 83 132/66 11/22 0816 83 132/66 11/22 0651 97.4 83 18 132/66 94 Room Air 11/21 2249 140/70 11/21 2245 98.4 73 18 110/60 95 Room Air 11/21 1806 98.6 68 22 169/79 99 Room Air 11/21 1748 99 Room Air Intake & Output 11/22 1600 11/22 0800 11/22 0000 11/21 1600 11/21 0800 11/21 0000 Intake Total 410 120 250 0 120 Output Total 350 Balance 60 120 250 0 120 Intake, IV 10 Intake, Oral 400 120 250 0 120 Output, Urine 350 Patient 168 lb 175 lb Weight Weight Reported by Patient Measurement Method Physical Exam: Well-developed, overweight elderly female in no acute distress. Vital signs: See above. HEENT: Normocephalic, atraumatic, EOMI, slightly dry mucous membranes. Neck: No JVD, no bruits. Lungs: Bibasilar crackles that are unchanged. Heart: S1, S2 with grade 1-2/6 systolic murmur. No gallop or rub. PMI fifth ICS at [facility]. Abdomen: Soft, nontender, positive bowel sounds. Extremities, 1+ bilateral lower symptoms edema (left greater than right). Assessment/Plan Assessment/Plan [id number] w/ hx HTN, HLD, DM, ILD, "COPD", LEONIDAS on CPAP, LVH w/ stage 1 DD, LBBB , & syncope s/p ppm who presented to the ED on 11/20/2017 following a syncopal episode at home w/ documented orthostasis. Recommendations: * Continue on telemetry. * Pacemaker interrogation-[employer] new accounts representative contacted. * Repeat orthostatic blood pressure. * Replete magnesium and maintain at or above 2.0 mg/dl. * Check free T4, TSH, and glycosylated hemoglobin A1c. * Gingerly hydrate. * DVT prophylaxis. Further recommendations will follow, Thank you. Consult Acknowledgment - Thank you for your consult request.
[2017-11-22 23:12] VITALS: BP 118/78
[2017-11-23 06:00] VITALS: BP 130/62
--- NOTE | 2017-11-23 07:27 | PN- Housestaff ---
See Addendum Subjective Follow-up For: Syncope Tele-Events Since Last Visit: Sinus rhythm with heart rate between 63-67 Subjective: No overnight events. Patient remained afebrile lipase and examined this morning. She denied any chest pain, palpitation, dizziness, abdominal pain dysuria. Review of Systems Constitutional: Denies: chills, fever. EENTM: Reports: no symptoms. Cardiovascular: Denies: chest pain, orthopena, palpitations. Respiratory: Denies: cough, short of breath, sputum production. Gastrointestinal: Denies: abdominal pain, constipation, diarrhea, nausea. Genitourinary: Reports: no symptoms. Musculoskeletal: Reports: no symptoms. Neurological/Psychological: Reports: no symptoms. Objective Last 24 Hrs of Vital Signs/I&O Vital Signs Date Time Temp Pulse Resp B/P B/P Pulse O2 O2 Flow FiO2 Mean Ox Delivery Rate 11/23 0600 99.0 60 20 130/62 96 Room Air 11/22 2312 98.2 85 18 118/78 93 Room Air 11/22 2119 68 138/72 11/22 1533 98.3 66 16 138/68 93 Room Air 11/22 0816 83 132/66 11/22 0816 83 132/66 Intake & Output 11/23 0800 11/23 0000 11/22 1600 Intake Total 120 120 410 Output Total 350 Balance 120 120 60 Intake, IV 10 Intake, Oral 120 120 400 Output, Urine 350 Patient 167 lb Weight Weight Bed scale Measurement Method Physical Exam General Appearance: Alert, Oriented X3, Cooperative Skin: No Rashes Skin Temp/Moisture Exam: Warm/Dry Sepsis Skin Exam (color): Normal for Ethnicity HEENT: Atraumatic, PERRLA, EOMI Neck: Supple Cardiovascular: Normal S1, Normal S2 Lungs: Clear to Auscultation Abdomen: Soft, No Tenderness Neurological: Normal Speech, Strength at 5/5 X4 Ext, Normal Tone Extremities: reticular veins around ankles with grade 1 pedal edema b/l Assessment/Plan Assessment: 87 YO F with PMH of hypertension, obstructive sleep apnea, LBBB, symptomatic bradycardia status post pacemaker, pulmonary fibrosis, osteoarthritis, osteoporosis, type take, hip and knee replacement was brought to ED with chief complaint of episode of syncope this morning. We are following the patient on telemetry floor for following problems: Syncope episode: -Patient has history of symptomatic bradycardia status post pacemaker placement so we are following the patient on telemetry floor to rule out any arrhythmias or heart block. -Pacemaker interrogation. -Orthostatic is normal. -Cardiac recommendations History of hypertension: -Continue amlodipine and lisinopril History of pulmonary fibrosis: -Continue acetylcysteine History of diabetes: -Accu-Cheks -Insulin NovoLog according to sliding scale History of depression/anxiety: -Continue Lexapro DVT prophylaxis: Mechanical and subcutaneous heparin CODE STATUS: DNR/DNI Problem List: 1. Syncope Pain Ratin Pain Location: none Pain Goal: Remain pain free Pain Plan: pain pathway Tomorrow's Labs & Rationales: none
[2017-11-23 12:38] VITALS: BP 142/56
--- NOTE | 2017-11-23 19:57 | PN- Cardiology ---
Subjective Subjective: No complaints. Orthostatic vital signs revealed no orthostatic change on recheck. [employer] pacemaker functioning properly and no need for reprogramming. Objective Vital Signs and I&Os Vital Signs Date Time Temp Pulse Resp B/P B/P Pulse O2 O2 Flow FiO2 Mean Ox Delivery Rate 11/23 1238 84 142/56 11/23 0821 66 130/60 11/23 0821 66 130/60 11/23 0800 95 Room Air 11/23 0600 99.0 60 20 130/62 96 Room Air 11/22 2312 98.2 85 18 118/78 93 Room Air 11/22 2119 68 138/72 Intake & Output 11/23 1600 11/23 0800 11/23 0000 11/22 1600 11/22 0800 11/22 0000 Intake Total 120 120 410 120 250 Output Total 350 Balance 120 120 60 120 250 Intake, IV 10 Intake, Oral 120 120 400 120 250 Output, Urine 350 Patient 167 lb 168 lb Weight Weight Bed scale Measurement Method Physical Exam: Well-developed, overweight elderly female in no acute distress. Vital signs: See above. HEENT: Normocephalic, atraumatic, EOMI, slightly dry mucous membranes. Neck: No JVD, no bruits. Lungs: Bibasilar crackles that are unchanged. Heart: S1, S2 with grade 1-2/6 systolic murmur. No gallop or rub. PMI fifth ICS at MCL. Abdomen: Soft, nontender, positive bowel sounds. Extremities, 1+ bilateral lower symptoms edema (left greater than right). Current Medications: Current Medications Sig/Jude Start time Last Medication Dose Route Stop Time Status Admin Acetaminophen 650 MG Q6P PRN 11/20 2014 DCD PO Acetylcysteine 600 MG QPM 11/20 2099 DCD 11/22 PO 211 Amlodipine Besylate 5 MG DAILY 11/20 2013 DCD 11/23 PO 0821 Escitalopram Oxalate 5 MG DAILY 11/20 2013 DCD 11/23 PO 08 Heparin Sodium 5,000 UNIT Q8 11/20 2199 DCD 11/23 (Porcine) SC 0520 Lisinopril 20 MG BID 11/20 2099 DCD 11/23 PO 0821 Magnesium Oxide 400 MG ONE ONE 11/23 1000 DC 11/23 PO 11/23 1001 1142 Magnesium Oxide 400 MG BID 11/20 2099 DCD 11/23 PO 0820 Melatonin 5 MG AT BEDTIME PRN 11/21 2300 DCD 11/22 PO 2118 Results Last 48 Hrs of Labs/Mics: Laboratory Tests 11/23/17 0615: Anion Gap 11, Estimated GFR > 60, BUN/Creatinine Ratio 38.3 H, Hemoglobin A1c 6.5 H, Magnesium 1.8, TSH &T3 &Free T4 Intrp 1.960 11/22/17 0650: Anion Gap 10, Estimated GFR > 60, BUN/Creatinine Ratio 28.3 H, Magnesium 1.7 Assessment/Plan Assessment/Plan [id number] w/ hx HTN, HLD, DM, ILD, "COPD", LEONIDAS on CPAP, LVH w/ stage 1 DD, LBBB , & syncope s/p ppm who presented to the ED on 11/20/2017 following a syncopal episode at home w/ documented orthostasis. No further evidence of orthostatic change. Permanent pacemaker functioning properly without the need for reprogramming changes. We will plan for discharge and further outpatient evaluation/management. Continue telemetry? No
== END 2017-11-23 14:55 | DRG 312 ==
LOC: ERH 13:40 → 1NO 17:02 → ERHI 17:02 → 1NO 17:02 → ERHI 11-21 07:47 → ENRESERV 11-21 17:12 → ENTRNSPT 11-21 17:50 → EDTRNSPTSTS 11-21 18:03 → EDTRNSPT 11-21 18:03 → 1NO 11-21 18:19 → CMPTRNSPT 11-21 18:39 → ENPENDDIS 11-23 13:32 → ENTRNSPT 11-23 14:44 → EDTRNSPTSTS 11-23 14:54 → EDTRNSPT 11-23 14:54 → 1NO 11-23 14:55 → CMPTRNSPT 11-23 15:22
PROVIDERS: Internal Medicine Interventional Cardiology; Physician Assistant Medical
PROC: 4B02XSZ Measurement of Cardiac Pacemaker, External Approach (ICD-10-PCS; principal; 2017-11-22)
DX: I95.1 Orthostatic hypotension (principal); J84.10 Pulmonary fibrosis, unspecified; E11.9 Type 2 diabetes mellitus without complications; R55 Syncope and collapse; Z79.84 Long term (current) use of oral hypoglycemic drugs; G47.33 Obstructive sleep apnea (adult) (pediatric); Z95.0 Presence of cardiac pacemaker; I10 Essential (primary) hypertension; I44.7 Left bundle-branch block, unspecified; R00.1 Bradycardia, unspecified; H26.9 Unspecified cataract; Z66 Do not resuscitate; F32.9 Major depressive disorder, single episode, unspecified; F41.9 Anxiety disorder, unspecified; J44.9 Chronic obstructive pulmonary disease, unspecified
CPT/HCPCS: 1NP; ERO; 36592; 71045; 82436; 93005; 93010; 97116-GO; 97161-GP; 97530-GO; J1644